=== PATIENT | male | born 1995 | race African-American/Black ===

== ENCOUNTER 2021-09-26 11:17 | Emergency (ER) | payer SELFPAY ==
[2021-09-26] MEDS ORDERED: Acetaminophen 500 MG TAB ONE (12:05)
[2021-09-26] MEDS ORDERED: Ketorolac Tromethamine 30 MG/ML VIAL ONE (12:05)
== END 2021-09-26 12:36 | disposition home or self-care (01) ==
LOC: CSHERS 11:17
DX: R07.89 Other chest pain (principal); M25.512 Pain in left shoulder; R00.0 Tachycardia, unspecified; F17.210 Nicotine dependence, cigarettes, uncomplicated
CPT/HCPCS: 71045; 93005; 96372; J1885

== ENCOUNTER 2021-12-28 15:27 | Emergency (ER) | payer SELFPAY | END 2021-12-28 16:21 | disposition home or self-care (01) | LOC: CSHERS 15:27 | DX: M77.9 Enthesopathy, unspecified (principal); F17.200 Nicotine dependence, unspecified, uncomplicated ==

== ENCOUNTER 2022-10-25 15:21 | Emergency (ER) | payer SELFPAY ==
[2022-10-25] MEDS ORDERED: Ketorolac Tromethamine 30 MG/ML VIAL ONE (16:32)
[2022-10-25] MEDS ORDERED: Dexamethasone 10 MG/ML VIAL ONE (16:32)
== END 2022-10-25 16:48 | disposition home or self-care (01) ==
LOC: CSHERS 15:21
DX: K04.7 Periapical abscess without sinus (principal); K03.81 Cracked tooth
CPT/HCPCS: 96372; 99283; J1100; J1885

== ENCOUNTER 2022-12-10 16:39 | Emergency (ER) | payer SELFPAY ==
[2022-12-10 18:08] LABS: Bilirubin Neg (Negative); Blood, Urine Negative (Negative); Clarity Clear (Clear); Glucose, Urine (Dipstick) Normal (Negative); Ketone, Urine 5 mg/dL (Negative); Leukocyte Negative (Negative); Nitrite Negative (Negative); Protein, Urine (Dipstick) 15 mg/dl (Neg-Trace); Specific Gravity, Urine 1.025 (1.005-1.030)
[2022-12-10] MEDS ORDERED: cefTRIAXone\\ROCEPHIN 500 MG VIAL ONE (18:55)
[2022-12-10] MEDS ORDERED: Azithromycin 250 MG TAB ONE (18:55)
[2022-12-10] MEDS ORDERED: Sterile Water 10 ML ONE (18:56)
[2022-12-11 22:58] LABS: Chlam.trachomatis by PCR,Urine Not Detected (NotDetected)
== END 2022-12-10 19:11 | disposition home or self-care (01) ==
LOC: CSHERS 16:39
DX: N34.2 Other urethritis (principal)
CPT/HCPCS: 81003; 87491; 87591; 96372; 99283; J0696

== ENCOUNTER 2023-09-09 09:21 | Emergency (ER) | payer SELFPAY ==
[2023-09-09] MEDS ORDERED: Ketorolac Tromethamine 30 MG/ML VIAL ONE (10:36)
== END 2023-09-09 10:38 | disposition home or self-care (01) ==
LOC: CSHERS 09:21
DX: M79.651 Pain in right thigh (principal)
CPT/HCPCS: 96372; 99283; J1885

== ENCOUNTER → 2025-10-31 | Emergency (ER) | payer SELFPAY ==
[~2025-10-31] MED LIST: Ibuprofen 200 MG TAB ONE
== END ==
LOC: CSHERS 01:38
DX: K02.9 Dental caries, unspecified (principal); F17.210 Nicotine dependence, cigarettes, uncomplicated
CPT/HCPCS: 99282